=== PATIENT | male | born 1940 | race Caucasian/White ===

== ENCOUNTER 2017-08-15 05:35 | Outpatient (CLI) | payer MEDICARE ==
[~2017-08-15] VITALS: Ht 177.8 cm; Wt 93.9 kg
[~2017-08-15 05:35] MED LIST: LISI1TAB6 PO; OMEG1CAP51 PO
[2017-08-15] MEDS ORDERED: LISI1TAB6 PO (14:23)
== END 2017-08-15 14:26 ==
LOC: PREOP 05:35
PROVIDERS: ATTEND Surgery
DX: Z01.818 Encounter for other preprocedural examination (principal); Z12.11 Encounter for screening for malignant neoplasm of colon; Z86.010 Personal history of colon polyps

== ENCOUNTER → 2019-05-20 | Outpatient (CLI) | payer MEDICARE ==
--- NOTE | 2019-05-20 15:55 | Diagnostic Imaging Report ---
INDICATION: Cough. EXAMINATION: PA and lateral views were obtained. FINDINGS: The heart size, mediastinal configuration, and pulmonary vascularity are within normal limits. There is no pleural effusion, pneumothorax, or pneumonia. The osseous structures are unremarkable. IMPRESSION: No acute cardiopulmonary abnormality. Dictated by: Dictated on workstation # [id number]
== END ==
LOC: RAD 15:27
PROVIDERS: ATTEND Nurse Practitioner
DX: R05 Cough (principal)
CPT/HCPCS: 71046

== ENCOUNTER → 2019-07-21 | Outpatient (CLI) | payer MEDICARE ==
--- NOTE | 2019-07-21 10:27 | Diagnostic Imaging Report ---
INDICATION: Pain in the right heel. TIME OF EXAM: 10:17 AM 3 views of the right foot were obtained. The metatarsals appear to be intact. The phalanges are intact. Midfoot is unremarkable. There is a large plantar calcaneal spur. No fractures are seen. IMPRESSION: Calcaneal spur. No other significant abnormality is detected. Dictated by: Dictated on workstation # [id number]
== END ==
LOC: RAD 09:59
PROVIDERS: ATTEND Internal Medicine
DX: M77.31 Calcaneal spur, right foot (principal)
CPT/HCPCS: 73630

== ENCOUNTER → 2020-10-28 | Outpatient (CLI) | payer MEDICARE ==
[~2020-10-28] MED LIST changes: +LISI1TAB29 PO
--- NOTE | 2020-10-28 12:31 | Diagnostic Imaging Report ---
Indication: Palpable abnormality in the right submandibular region Technique: Multiple real-time grayscale images were obtained over the right submandibular in various projections FINDINGS: There is no evidence of discrete solid or cystic mass. There is no pathologically enlarged adenopathy. There does appear to be at least moderate atherosclerotic plaque in the carotid artery. IMPRESSION: No evidence of discrete mass. At least moderate plaque in the right common carotid artery. Further evaluation with dedicated carotid duplex is recommended. Dictated by: Dictated on workstation # [id number]
--- NOTE | 2020-10-28 15:19 | Diagnostic Imaging Report ---
PROCEDURE: US Thyroid. TECHNIQUE: Multiple real-time grayscale images were obtained of the thyroid in various projections. INDICATION: Neck pain and neck mass. FINDINGS: Right lobe of thyroid measures 3.4 x 1.7 x 1.4 cm and left lobe measures 3.4 x 1.3 x 1.0 cm. There are two hypoechoic nodules in right lobe of the thyroid, largest approximately 8 mm x 5 mm. Smaller lesion measures 6 mm x 5 mm. No dominant thyroid masses detected. Isthmus is 5 mm in thickness. IMPRESSION: Subcentimeter right lobe thyroid nodules. No dominant thyroid mass is detected. Dictated by: Dictated on workstation # [id number]
== END ==
LOC: RAD 11:01
PROVIDERS: ATTEND Nurse Practitioner Family
DX: E04.2 Nontoxic multinodular goiter (principal); M54.2 Cervicalgia
CPT/HCPCS: 76536

== ENCOUNTER → 2020-11-12 | Outpatient (CLI) | payer MEDICARE ==
--- NOTE | 2020-11-12 13:08 | Diagnostic Imaging Report ---
PROCEDURE: US carotid duplex, bilateral. INDICATION: History of hypertension. Carotid stenosis. TECHNIQUE: Multiple real-time grayscale images were obtained over the carotid arteries in various projections bilaterally. Additional spectral analysis and color Doppler and Duplex images were also obtained. FINDINGS: Color images demonstrate mild scattered plaque formation. This is most pronounced at the level of the right carotid bifurcation and extending into the proximal internal carotid artery. Right Carotid System: Right Common Carotid Artery: Patent. There is no abnormally elevated velocity to suggest a hemodynamically significant stenosis. Right Internal Carotid Artery: Patent. There is no abnormally elevated velocity to suggest a hemodynamically significant stenosis. Right External Carotid Artery: Patent. Left Carotid System: Left Common Carotid Artery: Patent. There is no abnormally elevated velocity to suggest a hemodynamically significant stenosis. Left Internal Carotid Artery: Patent. There is no abnormally elevated velocity to suggest a hemodynamically significant stenosis. Left External Carotid Artery: Patent. Vertebral arteries: Patent and with antegrade direction of flow. DOPPLER (peak systolic velocity M/S Right Left CCA 10.6 12.1 ICA Proximal 7.9 4.9 ICA Mid 9.2 6.3 ICA Distal 9.7 7.1 RATIO .99 .60 ECA 8.3 11.5 VERT 3.7 4.4 IMPRESSION: 1. Carotid Doppler imaging demonstrates scattered atherosclerotic plaque. Most pronounced distal right common carotid artery, bifurcation into the internal carotid artery. However, no findings to suggest a hemodynamically significant stenosis of the internal carotid arteries at this time. Parameters based on the consensus panel [employer] and Doppler ultrasound criteria published May 2003, Radiology, Volume 229. Dictated by: Dictated on workstation # [id number]
== END ==
LOC: RAD 12:00
PROVIDERS: ATTEND Nurse Practitioner Family
DX: I65.23 Occlusion and stenosis of bilateral carotid arteries (principal); I10 Essential (primary) hypertension
CPT/HCPCS: 93880

== ENCOUNTER 2021-07-29 12:54 | Outpatient (RCR) | payer MEDICARE ==
[2021-07-26 12:50] VITALS: BP_SYST 0; BP_SYST 106; BP_DIAS 0; BP_DIAS 84
[2021-07-26] MEDS: VANCOMYCIN 1 GM/NS 250 ML IVPB IV SCH ×2 (13:48)
[2021-07-27 12:55] VITALS: BP 111/59
[2021-07-27] MEDS: VANCOMYCIN 1 GM/NS 250 ML IVPB IV SCH ×2 (13:14)
[2021-07-28] MEDS: VANCOMYCIN 1 GM/NS 250 ML IVPB IV SCH ×2 (13:15)
[2021-07-28 13:24] VITALS: BP 104/76
[~2021-07-29] VITALS: Ht 177.8 cm; Wt 90.9 kg
[~2021-07-29 12:54] MED LIST changes: -LISI1TAB29 PO; +LISI1TAB44 PO; +NS (IVPB) 250 ML ONE
== END 2021-08-15 | disposition home or self-care (01) ==
LOC: SDC 12:54
PROVIDERS: ATTEND Nurse Practitioner Family
DX: L03.90 Cellulitis, unspecified (principal)
CPT/HCPCS: 36410; 76937; 96365; C1751

== ENCOUNTER → 2022-01-30 | Outpatient (CLI) | payer MEDICARE ==
[~2022-01-30] MED LIST changes: -NS (IVPB) 250 ML ONE
--- NOTE | 2022-01-30 10:44 | Diagnostic Imaging Report ---
PROCEDURE: US left lower extremity venous. TECHNIQUE: Multiple real-time grayscale images were obtained over the left lower extremity in various projections. Additional duplex Doppler and color Doppler images were also obtained. INDICATION: Left leg pain. FINDINGS: There is no evidence of left lower extremity DVT. Left lower extremity deep venous system shows normal compressibility with normal response to augmentation and Valsalva. No fluid collection or mass is detected. IMPRESSION: No evidence of left lower extremity DVT. Dictated by: Dictated on workstation # [id number]
== END ==
LOC: RAD 10:00
PROVIDERS: ATTEND Nurse Practitioner Family
DX: M79.605 Pain in left leg (principal)

== ENCOUNTER 2022-11-22 06:41 | Outpatient (CLI) | payer MEDICARE ==
[~2022-11-22] VITALS: Ht 172.7 cm; Wt 92.1 kg
== END 2022-11-22 10:13 | disposition home or self-care (01) ==
LOC: PREOP 06:41
PROVIDERS: ATTEND Surgery
DX: Z01.818 Encounter for other preprocedural examination (principal)

== ENCOUNTER 2022-11-29 10:24 | Day surgery (SDC) | payer MEDICARE ==
[~2022-11-29] VITALS: Ht 172.7 cm; Wt 92.1 kg
[2022-11-29] MEDS ORDERED: LACTATED RINGERS 1,000 ML IV STA (10:40)
[2022-11-29 10:42] VITALS: BP 133/63
[2022-11-29] MEDS ORDERED: PROPOFOL INJECTION 50 ML IV ONE (10:52)
--- NOTE | 2022-11-29 11:19 | Progress Note-Pre Operative ---
Pre-Operative Progress Note Date of Available H&P: November 29, 2022 Date H&P Reviewed: November 29, 2022 Time H&P Reviewed: 10:30 History & Physical: No changes noted Pre-Operative Diagnosis: screening, hx of polyps ADAN HOPSON MD November 29, 2022 11:19
[2022-11-29] MEDS ORDERED: LIDOCAINE JELLY 2% 6 ML SYRINGE ONE (11:20)
--- NOTE | 2022-11-29 11:22 | Discharge Inst-Surgical ---
D/C Lap Instructions-MARK ANTHONY Follow Up Activity as tolerated High Fiber Diet 25g or more per day Avoid Alcohol, Caffeine, Spicy [place] and Acid foods. Drink 64 fluid oz or more of fluids per day. Symptoms to Report: Fever over 101 degree F, Nausea/Vomiting If any problems/questions: Contact your physician or go to Emergency Room ADAN HOPSON MD November 29, 2022 11:22
[2022-11-29] MEDS ORDERED: ONDANSETRON 4 MG/2 ML (SDV) Z0FRAN IVP PRN (11:30)
[2022-11-29] MEDS ORDERED: ONDANSETRON 4 MG (ZOFRAN) ORAL DISSOLVE TAB PO PRN (11:30)
[2022-11-29 11:50] VITALS: BP 66/39
[2022-11-29 11:55] VITALS: BP 66/46
--- NOTE | 2022-11-29 11:59 | Progress Note-Post Operative ---
Post-Operative Progess Note Surgeon (s)/Coat Ironer Hand (s) Surgeon ADAN HOPSON MD Coat Ironer Hand: none Pre-Operative Diagnosis screening, hx of polyps Post-Operative Diagnosis chronic stage 2 ext and int hemorrhoids, mild-moderate sigmoid diverticulosis. Procedure & Operative Findings Date of Procedure 11/29/22 Procedure Performed/Findings colonoscopy Anesthesia Type mac Estimated Blood Loss Estimated blood loss (mL): minimal Specimens/Packing Specimens Removed none ADAN HOPSON MD November 29, 2022 11:59
[2022-11-29 12:00] VITALS: BP 66/41
[2022-11-29 12:08] VITALS: BP 66/41
--- NOTE | 2022-11-29 14:16 | Anesthesia-General Post-Op ---
MAC Patient Condition Mental Status/LOC: Same as Preop Cardiovascular: Satisfactory Nausea/Vomiting: Absent Respiratory: Satisfactory Pain: Controlled Complications: Absent Post Op Complications Complications None Follow Up Care/Instructions Patient Instructions None needed. Anesthesiology Discharge Order Discharge Order Patient is doing well, no complaints, stable vital signs, no apparent adverse anesthesia problems. No complications reported per nursing. RAFAEL SNOWDEN CRNA November 29, 2022 14:16
--- NOTE | 2022-11-29 20:30 | OPERATIVE REPORT ---
DATE OF SERVICE: 11/29/2022 ATTENDING PRIMARY CARE PHYSICIAN: Dr. Joaquin Suh. PREOPERATIVE DIAGNOSIS: Screening colonoscopy with history of multiple colon polyps. POSTOPERATIVE DIAGNOSES: Chronic stage II, external and internal hemorrhoids, mild to moderate sigmoid diverticulosis. PROCEDURE: Colonoscopy. SURGEON: Adan Hopson MD ANESTHESIA: Monitored anesthesia care. ESTIMATED BLOOD LOSS: Minimal. FINDINGS: Chronic stage II, external and internal hemorrhoids, mild to moderate sigmoid diverticulosis. DISPOSITION: The patient tolerated the procedure well. INDICATIONS: The patient is an 82-year-old male known to us. He was referred over to us for history of diverticulosis as well as a history of multiple colonic polyps and he did have a colonoscopy in 05/2009 where a tubular adenoma of the cecum as well as the transverse colon was detected. He then had another colonoscopy 07/2012 were no polyps identified. He then had another colonoscopy in 2018 where there was a small polyp of the proximal rectum and ascending colon. Both polyps, consistent with tubular adenomas. Due to his previous history of multiple colonic polyps, he is here for a screening colonoscopy. He does not report any family history of colon cancer. DESCRIPTION OF PROCEDURE: The patient was brought to the endoscopy suite and laid in the left lateral decubitus position. After adequate IV pain and sedative medications and monitored anesthesia care, a digital rectal examination was performed. Chronic stage II, external and internal hemorrhoids were identified, not actively edematous nor inflamed and no bleeding. Normal sphincter tone was felt and there were no palpable masses. Prostate gland was palpable and slightly enlarged; however, no palpable nodules. The endoscope was then intubated into the anus, rectum gently insufflated. The endoscope was then advanced through the valves of [place] of the rectum with no polyps or neoplasms identified. Through the sigmoid colon, a mild to moderate sigmoid diverticulosis identified. The endoscope was then advanced to the remainder of the descending, transverse and ascending colon to the cecum, which were normal. There were no polyps or any neoplasms identified. The endoscope was then slowly withdrawn while taking a second look and suctioning of residual air with no additional findings. The patient tolerated the procedure well. We will recommend continued medical management with a high-fiber diet with addition of a fiber supplement, which should equal or exceed 30 grams daily to promote soft consistency stools on a daily basis. He has had 4 colonoscopies in the past 20 years, two of which did show multiple small tubular adenomas. However, 2 colonoscopies with no polyps. He does not have any first-degree family history of colon cancer and due to his age, it would be acceptable for him to wait 10 years for his next colonoscopy if he wishes to. Job ID: [id number] DocumentID: [id number] Dictated Date: 11/29/2022 11:55:54 Director Of Epidemiology Date: 11/29/2022 20:28:00 Dictated By: ADAN HOPSON MD
== END 2022-11-29 12:22 | disposition home or self-care (01) ==
LOC: ENDO 10:24
PROVIDERS: ATTEND Surgery
DX: Z12.11 Encounter for screening for malignant neoplasm of colon (principal); K64.4 Residual hemorrhoidal skin tags; K64.1 Second degree hemorrhoids; K57.30 Diverticulosis of large intestine without perforation or abscess without bleeding; Z86.010 Personal history of colon polyps